=== PATIENT | female | born 1975 | race Caucasian/White ===

== ENCOUNTER 2018-02-18 08:14 | Emergency (ER) | payer OTHER ==
[2018-02-18] MEDS: KETOROLAC 60 MG INJ IM (08:40)
== END 2018-02-18 09:07 | disposition home or self-care (01) ==
LOC: FTE 08:14
DX: M54.5 Low back pain (principal); F17.210 Nicotine dependence, cigarettes, uncomplicated
CPT/HCPCS: 81025; 96372; 99284-25

== ENCOUNTER 2018-03-04 18:00 | Emergency (ER) | payer OTHER | END 2018-03-04 19:20 | disposition home or self-care (01) | LOC: FTE 18:00 | DX: R05 Cough (principal); F17.210 Nicotine dependence, cigarettes, uncomplicated | CPT/HCPCS: 99284; Z7502 ==

== ENCOUNTER 2018-05-27 09:38 | Emergency (ER) | payer OTHER | END 2018-05-27 11:21 | disposition home or self-care (01) | LOC: FTE 09:38 | DX: M54.5 Low back pain (principal); Z87.891 Personal history of nicotine dependence | CPT/HCPCS: 72100; 81025; 99283-25 ==